=== PATIENT | female | born 1995 | race Two or more races ===

== ENCOUNTER 2017-05-10 14:42 | Outpatient (CLI) | payer OTHER ==
--- NOTE | 2017-05-13 09:22 | XRAY Report ---
THREE VIEW RIGHT FIFTH FINGER: 05/10/2017 CLINICAL INDICATION: Finger pain. FINDINGS: AP, lateral, and oblique views of the right 5th finger demonstrate an avulsion fracture of the base of the distal phalanx, with approximately 4 mm of displacement of the articular surface andrés obey. The proximal interphalangeal joint appears unremarkable. No radiopaque foreign body is seen in the soft tissues. IMPRESSION: INTERARTICULAR FRACTURE OF THE DISTAL PHALANX OF THE 5TH FINGER, WITH DORSAL DISPLACEMEN T OF THE ARTICULAR FRAGMENT. JOB #: [id number] EXT JOB #:[id number]
== END 2017-05-10 14:43 | disposition home or self-care (01) ==
LOC: DI.S 14:42
PROVIDERS: ATTEND Nurse Practitioner Family
DX: S62.636A Displaced fracture of distal phalanx of right little finger, initial encounter for closed fracture (principal)
CPT/HCPCS: 73140